=== PATIENT | male | born 1935 | race Hispanic/Latino ===

== ENCOUNTER 2017-02-03 06:59 | Day surgery (SDC) | payer MEDICARE ==
[2017-02-01 07:51] VITALS: BMI 28.5
[2017-02-03 07:43] LABS: BASO # 0.02 K/mm3 (0.0-2.0); BASO % 0.3 % (0.0-3.0); EOS # 0.1 (0.0-0.7); EOS % 1.1 % (1.5-5.0); GRAN # 4.05 (1.4-6.5); GRAN % 62.8 % (50.0-68.0); HEMOGLOBIN 15.8 gm/dL (14.0-18.0); LYMPH # 1.6 (1.2-3.4); LYMPH % 24.8 % (22.0-35.0); MEAN CELL VOLUME 99.8 fL (80.0-105.0); MEAN CORPUSCULAR HEMOGLOBIN 35.1 pg (25.0-35.0); MEAN CORPUSCULAR HGB CONC 35.2 g/dl (31.0-37.0); MEAN PLATELET VOLUME 11.6 fl (7.0-11.0); MONO # 0.7 (0.1-0.6); PLATELET COUNT 171 10^3/uL (120.0-450.0); RED CELL DISTRIBUTION WIDTH 12.6 % (11.5-14.5); WHITE BLOOD COUNT 6.5 10^3/ul (4.5-11.0)
[2017-02-03 07:52] VITALS: TEMP 97.7
[2017-02-03 07:53] LABS: PARTIAL THROMBOPLASTIN TIME 28.3 Seconds (23.7-30.8); PROTHROMBIN TIME 10.8 Seconds (9.9-11.8)
[2017-02-03 07:54] LABS: BLOOD UREA NITROGEN 22 mg/dL (7-21); CALCIUM 9.6 mg/dL (8.4-10.5); GFR AFRICAN-AMERICAN > 60; GFR NON-AFRICAN AMERICAN > 60; HDL CHOLESTEROL 59 mg/dL (29-60)
[2017-02-03 08:05] LABS: LDL CHOLESTEROL 146 mg/dL (0-129)
[2017-02-03] MEDS ORDERED: Lidocaine 2% Inj (20ml) ONE (08:50)
[2017-02-03] MEDS ORDERED: Midazolam 2 MG/2 ML VIAL ONE (09:17)
[2017-02-03] MEDS ORDERED: Sodium Chloride 0.9% 1,000 ML IV SCH (10:45)
[2017-02-03 11:00] VITALS: O2SAT 97
--- NOTE | 2017-02-03 11:02 | CARD ---
APPROVED REPORT HISTORY The Patient is a 81 year-old male with a history of SSS ,S/p PPM, PPM EOL of PPM PROCEDURES Dual chamber PPM EOL INDICATIONS EOL of PPM IMPLANTED DEVICES MEDJAMIE HOOPER-Gi PENALOZA, ASHOKR EXPLANTED DEVICES [employer] OPERATIVE NOTE The patient was brought to the Cardiac Catheterization Laboratory in a fasting state and was prepped and draped in a sterile manner. The left subclavian region was infiltrated with 2% Lidocaine subcutaneously. A transverse incision was made in the left subclavian area. The subcutaneous pocket was opened and the pulse generator was removed. The ventricular lead wire was exposed via blunt dissection. The ventricular lead was interrogated and Found to be normal Functioning, then atrial Lead intergated and found to be normal functioning THE ATYRIAL ELECTRODE PARAMETERE P WAVE-12.1 THRESHOLD 4.7 RESISTENCE 543 THE VENTRICULAR ELECTRODE PARAMETERS R WAVE 3.6 THRESHOLD1.3 RESISTANCE 482 setscrews firmly tightened to insure adequate contact and stability. The lead and pulse generator were placed into the subcutaneous pocket. Sharp and sponge counts were confirmed to be correct. At this time the pocket was closed subcutaneously with a Vicryl 2.0 and the skin was closed with a Vicryl 4.0 .The operative site was dressed in sterile fashion. The patient tolerated the procedure well and was transferred tot floor in stable condition. COMPLICATIONS The patient tolerated the procedure well and there were no complications associated with the procedure. CONCLUSION Successful PPM Generator change, Francisco GARZA-1 (DDDR) CC; Dr. CONNER
[2017-02-03 11:16] VITALS: RESP 16
[2017-02-03 11:43] VITALS: BP 126/72; PULSE 64
--- NOTE | 2017-02-03 14:22 | CARD ---
APPROVED REPORT EKG Measurement Heart [id number] <Conclusion> Electronic atrial pacemaker Left axis deviation Abnormal ECG
== END 2017-02-03 12:30 | disposition home or self-care (01) ==
LOC: CATH 06:59
PROVIDERS: ATTEND Internal Medicine Cardiovascular Disease
DX: Z45.018 Encounter for adjustment and management of other part of cardiac pacemaker (principal); I10 Essential (primary) hypertension; I25.10 Atherosclerotic heart disease of native coronary artery without angina pectoris; I38 Endocarditis, valve unspecified; I49.9 Cardiac arrhythmia, unspecified; E78.00 Pure hypercholesterolemia, unspecified
CPT/HCPCS: 33228; 36415; 80048; 80061; 85025; 85610; 85730; 86850; 86900; 93005; 99152; C1785; J0690; J2250; J3010; J7040 ×2